=== PATIENT | female | born 1945 | race Caucasian/White ===

== ENCOUNTER 2017-02-16 11:59 | Inpatient (IN) | payer MEDICARE ==
[2017-02-16 13:01] LABS: Hemoglobin 15.7 g/dL (12.0-16.0); Mean Corpuscular HGB CONC 31.8 g/dL (32.0-36.0); Mean Corpuscular Hemoglobin 31.5 pg (27.0-31.0); Mean Corpuscular Volume 98.9 fl (81.0-99.0); Mean Platelet Volume 8.9 fL (7.4-10.4); Platelet Count 386 thou/uL (130-400); RBC Distribution Width 12.1 % (11.5-14.5); Red Blood Cell (RBC) Count 4.99 mill/uL (4.20-5.40); White Blood Cell (WBC) Count 26.9 thou/uL (4.8-10.8)
[2017-02-16] MEDS ORDERED: Azithromycin 500 MG VIAL ONE (13:05)
[2017-02-16 13:08] LABS: ALT (SGPT) 43 U/L (8-55); AST (SGOT) 46 U/L (5-34); Albumin 3.9 g/dL (3.4-4.8); Alkaline Phosphatase 98 U/L (40-150); Anion Gap 22 mmol/L (10-20); BUN (Urea Nitrogen) 27 mg/dL (9.8-20.1); Bilirubin, Total 1.2 mg/dL (0.2-1.2); CK (CPK) 254 U/L (29-168); Calc. Creatinine Clearance 0 mL/min (70-130); Calcium 10.5 mg/dL (7.8-10.44); Carbon Dioxide 28 mmol/L (23-31); Chloride 107 mmol/L (98-107); Estimated GFR-MDRD 60; Globulin 4.4 g/dL (2.4-3.5); Glucose 132 mg/dL (83-110); Lipase 10 U/L (8-78); Magnesium 2.7 mg/dL (1.6-2.6); Potassium 3.4 mmol/L (3.5-5.1); Protein, Total 8.3 g/dL (6.0-8.3); Sodium 154 mmol/L (136-145)
[2017-02-16 13:12] LABS: CKMB 1.4 ng/mL (0-6.6)
--- NOTE | 2017-02-16 13:16 | RAD ---
FRONTAL VIEW CHEST: COMPARISON: None. COMPARISON: 10/28/16. INDICATION: Anorexia. FINDINGS: There is lobar consolidation of the right lung base. Cardiac silhouette is accentuated by portable t echnique. Pulmonary vasculature is within normal limits of size. There is osseous degenerative aleman ge. IMPRESSION: Right basilar pneumonia. Recommend followup to resolution with 2-view chest series. POS: [facility]
[2017-02-16 13:23] LABS: Band 10 % (5-11); Lymphocytes 11 % (21-51); MDiff Complete? YES; Monocytes 2 % (0-10); Neutrophil 75 % (42-75); PLT Morphology Comment Appears Adequate; Reactive Lymphocytes 2 % (0-10)
[2017-02-16 14:34] LABS: Bilirubin Moderate (Negative); Blood, Urine Moderate (Negative); Clarity CLOUDY (Clear); Glucose, Urine (Dipstick) 100 mg/dL (Negative); Leukocyte Negative (Negative); Nitrite Negative (Negative); Protein, Urine (Dipstick) 100 mg/dL (Neg-Trace); Specific Gravity, Urine 1.033 (1.002-1.036)
[2017-02-16 14:38] LABS: Pathc Cast-AUWi Flag 3.65 (0-2.49); Yeast-AUWi Flag 65.5 (0-25.0)
[2017-02-16 14:44] LABS: Bacteria/HPF 1+ HPF (None Seen); Hyaline Casts/LPF 7-10 HYALINE CAST LPF (0-3 Hyaline); Manual Microscopic Reviewed? No Path Casts Seen; Transitional Epithelial 0-3 HPF (0-3); Yeast-All Forms None Seen HPF (None Seen)
[2017-02-16 17:06] LABS: Lactic Acid 2.3 mmol/L (0.5-2.2)
[2017-02-16 17:13] LABS: Troponin I 0.122 ng/mL (< 0.028)
[2017-02-16] MEDS ORDERED: Acetaminophen 325 MG Suppository ONE (18:05)
[2017-02-16 20:27] LABS: Troponin I 0.183 ng/mL (< 0.028)
--- NOTE | 2017-02-16 20:35 | HP ---
DATE OF ADMISSION: 02/16/2017 CHIEF COMPLAINT: Anorexia. HISTORY OF PRESENT ILLNESS: The patient is a 72-year-old female who lives at [facility]. She was found to behave differently in the last 3 days. Apparently, she was taking fo od to her mouth and chewing and not swallowing. She was not taking much fluids either. She had some low grade fever, so she was sent out to the emergency room for further evaluation. There is no any communication with this lady. She has quite advanced dementia. She does not talk for the last almos t 2 years. She had some productive cough. PAST MEDICAL HISTORY: Positive for: 1. Alzheimer dementia. 2. Hypercholesterolemia. PAST SURGICAL HISTORY: None. SOCIAL HISTORY: She lives at [facility]. At this time, she denies any alcohol in take, tobacco use, or drug use. FAMILY HISTORY: Mother had pancreatic cancer and she passed at the age of 94 and father had cancer a nd he passed when he was 78. REVIEW OF SYSTEMS: Reviewed all 14 systems and they were negative except for symptoms mentioned at [facility]. ALLERGIES: BENADRYL. CURRENT MEDICATIONS: Crestor 10 mg at bedtime, Ensure liquid, galantamine 4 mg twice a day, Tylenol 325 mg 2 tablets every 6 hours p.r.n. as needed, Seroquel 100 mg once a day at bedtime. PHYSICAL EXAMINATION: VITAL SIGNS: Her blood pressure is 102/84, pulse is 110 to 130, respiratory rate is 15, temperature is 98.6 rectally, O2 saturation is 97% on room air. HEENT: Atraumatic, normocephalic. Both conjunctivae are erythematous. There is some pus in both ey es. Oral mucosa is dry. NECK: Supple, no lymphadenopathy. LUNGS: Breath sounds somewhat diminished at both bases with few crackles bilaterally at both bases. HEART: S1, S2, tachycardic. No S3, no S4. ABDOMEN: Soft, nontender, bowel sounds are present. No organomegaly. EXTREMITIES: No clubbing, cyanosis, or edema. NEUROLOGIC: She is not following my commands. There is not any communication with this lady. She i s quite severely demented. LABORATORY DATA: Showed sodium of 154, potassium 3.4, chloride 107, CO2 28, BUN 27, creatinine 0.92, glucose 132. Lactic acid 4.1 and then 2.3. Most recently, calcium 10.5, magnesium 2.7, creatinine kinase 254, troponin at 0.122. BNP at 126.1, globulin 4.4, lipase 10. White count of 26.9, hemoglob in of 15.7, hematocrit 49.3, platelet count is 386,000, and neutrophils 75. Urinalysis showed cloudy urine, color ariana, pH of 6, specific gravity of 1.033, urine protein 100, glucose in urine 100, ket ones trace, blood moderate, bilirubin moderate. Microscopic evaluation: 7-10 rbc's, 4-6 wbc's, squa mous epithelial cells 4-6, bacteria 1+, hyaline casts 7-10. none. Chest x-ray showed right ba silar pneumonia. IMPRESSION: 1. Sepsis, most likely secondary to right lower lobe pneumonia. 2. Right lower lobe pneumonia. 3. Severe dehydration. 4. Hypokalemia. 5. Hyperlipidemia. PLAN: Full admission to telemetry floor. Condition is guarded. FULL CODE. Surrogate decision make r is the patient's . IV fluids at 100 mL per hour normal saline. Supplementation of potassiu m. Serial CBCs and BMPs. Continue vancomycin 1 gram every 12 hours IV piggyback and switch her to L evaquin 750 mg IV piggyback every 24 hours. The patient received azithromycin and Rocephin in the [facility] room. We will have cultures done on her urine and blood x2. We will supplement O2 if needed.
[2017-02-16] MEDS ORDERED: Acetaminophen 325 MG TAB PO PRN ×2 (21:03→21:04)
[2017-02-16] MEDS ORDERED: Ondansetron HCl/PF 4 MG/2 ML Vial IVP PRN (21:04)
[2017-02-16] MEDS ORDERED: Sodium Chloride 0.9% 1,000 ML IV SCH (21:04)
[2017-02-16] MEDS ORDERED: Ondansetron ODT 4 MG TAB SL PRN (21:04)
[2017-02-16] MEDS ORDERED: Heparin 5,000 UNITS/ML VIAL SC SCH (21:30)
[2017-02-16] MEDS: Sodium Chloride 0.9% 1,000 ML IV SCH (22:50)
[2017-02-16 23:14] LABS: Troponin I 0.163 ng/mL (< 0.028)
[2017-02-17] MEDS ORDERED: Vancomycin HCl 1 GM in Premix Bag 1 BAG IVPB SCH (04:00)
[2017-02-17 06:53] LABS: Anion Gap 12 mmol/L (10-20); BUN (Urea Nitrogen) 14 mg/dL (9.8-20.1); Calc. Creatinine Clearance 103 mL/min (70-130); Calcium 8.4 mg/dL (7.8-10.44); Carbon Dioxide 25 mmol/L (23-31); Chloride 113 mmol/L (98-107); Estimated GFR-MDRD Greater than 90; Glucose 103 mg/dL (83-110); Potassium 2.7 mmol/L (3.5-5.1); Sodium 147 mmol/L (136-145)
[2017-02-17 07:30] LABS: Band 22 % (5-11); Hemoglobin 11.9 g/dL (12.0-16.0); Lymphocytes 6 % (21-51); MDiff Complete? YES; Mean Corpuscular HGB CONC 31.7 g/dL (32.0-36.0); Mean Corpuscular Hemoglobin 31.3 pg (27.0-31.0); Mean Corpuscular Volume 98.9 fl (81.0-99.0); Monocytes 4 % (0-10); Neutrophil 68 % (42-75); Platelet Count 271 thou/uL (130-400); White Blood Cell (WBC) Count 21.3 thou/uL (4.8-10.8)
[2017-02-17] MEDS: Sodium Chloride 0.9% 1,000 ML IV SCH (08:14)
[2017-02-17] MEDS: Heparin 5,000 UNITS/ML VIAL SC SCH ×3 (08:14→21:33)
[2017-02-17] MEDS: Potassium Chloride 20 MEQ in Sodium Chloride 0.9% 250 ML 250 ML IVPB SCH ×3 (10:24→23:09)
--- NOTE | 2017-02-17 13:59 | PRG ---
DATE OF SERVICE: 02/17/2017 SUBJECTIVE: The patient is seen and examined at bedside. The patient's is in the room ha g my visit. The patient was seen and evaluated by Speech therapist. OBJECTIVE: VITAL SIGNS: Blood pressure is 136/84, pulse is 89, temperature is 96.8, respiratory rate is 20, O2 saturation is 98% on room air. HEENT: Head is atraumatic, normocephalic. Eyes, sclerae are anicteric. Conjunctivae pinkish. Oral mucosa is still somewhat dry. NECK: Supple. No JVDs. LUNGS: Few crackles at the bases. CARDIOVASCULAR: S1, S2 normal, no S3, no S4, no any murmur. ABDOMEN: Soft, nontender, nondistended. EXTREMITIES: No clubbing, cyanosis, or edema. NEUROLOGIC: She does not follow my commands. She does not speak, but she is able to move all 4 extr emities. LABORATORY DATA: Showed a white count of 21.3, hemoglobin 11.9, hematocrit 37.6, platelet count is 2 71. Chemistry showed sodium of 147, potassium 2.7, chloride 113, BUN 13, creatinine 0.58, glucose 10 3, calcium 8.4. Troponin 3 sets with levels 0.122, 0.183 and 0.163. BNP 126.1, potassium 2.7 IMPRESSION: 1. Sepsis, most likely secondary to right lower lobe pneumonia, improved. 2. Right lower lobe pneumonia, question is whether she is aspirating her food. 3. Severe dehydration significantly corrected. 4. Hypernatremia, improved with IV fluids. 5. Hypokalemia, would be replaced with 20 mEq of KCl q.6 hours x3 doses. 6. Hyperlipidemia, stable. PLAN: Change her fluids to half normal saline with 20 mEq of KCl at 75 mL per hour since she is hype rnatremic and she does not need so much sodium, we will supplement her potassium. Her hemoglobin hima pped significantly, but this is delusional. We would continue her antibiotic which is vancomycin, az ithromycin and levofloxacin, this is broad spectrum since she comes from the long term. Blood cul tures were done and there is no growth. Urine culture, no growth. Strep, throat testing is negative and Influenza type direct, the EIA final was normal, which is negative and so plan as mentioned abov e, also since her Troponin I is indeterminant, we will make sure that she is on aspirin and we will o btain echocardiogram for further evaluation of her left ventricle.
[2017-02-17] MEDS ORDERED: Aspirin 300 MG Suppository PR SCH (14:15)
[2017-02-17] MEDS: Clindamycin/D5W 600 MG in Premix Bag 1 BAG IVPB SCH ×2 (14:20→21:32)
[2017-02-17] MEDS: 1/2 NS w/KCL 20 mEq 1,000 ML IV SCH (15:10)
--- NOTE | 2017-02-17 21:16 | CON ---
DATE OF CONSULTATION: 02/17/2017 HISTORY OF PRESENT ILLNESS: The patient is a 72-year-old woman who suffers from severe dementia. The patient presented with increasing dyspnea and decreased appetite. She lives in [facility] [place]. The patient was noted not to be eating and presented to the emergency room. During her hospitalization, the patient was noted to have an abnormal ECG. The patient is unable to give any coherent history. PAST MEDICAL HISTORY: 1. Alzheimer disease. 2. Dyslipidemia. PAST SURGICAL HISTORY: Oral surgery. MEDICATIONS ON ADMISSION: Galantamine 4 mg p.o. b.i.d., Seroquel 100 daily, Crestor 10 daily. FAMILY HISTORY: Positive family history of heart disease. SOCIAL HISTORY: Nonsmoker. ALLERGIES: No known drug allergies. REVIEW OF SYSTEMS: Unobtainable. PHYSICAL EXAMINATION: GENERAL AND VITAL SIGNS: Elderly woman who is disoriented with a blood pressure 137/68. NECK: No jugular venous distention. LUNGS: Coarse breath sounds bilateral. HEART: Regular rate and rhythm. Normal S1, S2. ABDOMEN: Nondistended. EXTREMITIES: Showed trace edema. LABORATORY AND DIAGNOSTIC RESULTS: Sodium 147, potassium 2.7, chloride 113, bicarbonate 25, BUN 14, creatinine 0.58, troponin 0.163. EKG revealed normal sinus tachycardia with a nonspecific ST abnormality. IMPRESSION: 1. Abnormal EKG. 2. Pneumonia. 3. Severe dementia. PLAN: This unfortunate woman had presented with pneumonia and developed probable demand ischemia with indeterminate troponin levels and an EKG suggestive of ischemia. The patient is being treated with aspirin. She is unable to take p.o. medications at this time. I would restart Crestor as soon as possible. We will follow this patient with you throughout her hospitalization. WHIT
[2017-02-17] MEDS: Rosuvastatin 10 MG TAB PO SCH (21:32)
[2017-02-18] MEDS: 1/2 NS w/KCL 20 mEq 1,000 ML IV SCH ×2 (02:50→18:30)
[2017-02-18] MEDS: Clindamycin/D5W 600 MG in Premix Bag 1 BAG IVPB SCH ×4 (04:09→20:44)
[2017-02-18] MEDS: Heparin 5,000 UNITS/ML VIAL SC SCH ×3 (08:48→20:44)
[2017-02-18] MEDS: Aspirin 300 MG Suppository PR SCH (08:49)
[2017-02-18 08:58] LABS: #Eosinphils 0.1 thou/uL (0.0-0.7); #Lymphocytes 1.9 thou/uL (1.20-3.40); #Monocytes 0.8 thou/uL (0.11-0.59); #Neutrophils 11.9 thou/uL (1.40-6.50); %Basophils 0.2 % (0.0-1.0); %Eosinophils 0.5 % (0.0-10.0); %Lymphocytes 12.5 % (21.0-51.0); %Monocytes 5.7 % (0.0-10.0); Mean Corpuscular HGB CONC 32.7 g/dL (32.0-36.0); Mean Corpuscular Hemoglobin 31.6 pg (27.0-31.0); Mean Corpuscular Volume 96.8 fl (81.0-99.0); Mean Platelet Volume 8.7 fL (7.4-10.4); Platelet Count 270 thou/uL (130-400); Red Blood Cell (RBC) Count 4.44 mill/uL (4.20-5.40); White Blood Cell (WBC) Count 14.7 thou/uL (4.8-10.8)
[2017-02-18 09:07] LABS: Anion Gap 15 mmol/L (10-20); BUN (Urea Nitrogen) 8 mg/dL (9.8-20.1); Calc. Creatinine Clearance 116 mL/min (70-130); Calcium 8.9 mg/dL (7.8-10.44); Carbon Dioxide 25 mmol/L (23-31); Chloride 102 mmol/L (98-107); Estimated GFR-MDRD Greater than 90; Glucose 82 mg/dL (83-110); Sodium 139 mmol/L (136-145)
[2017-02-18 09:09] LABS: Potassium 2.8 mmol/L (3.5-5.1)
[2017-02-18] MEDS: Potassium Chloride 20 MEQ TAB PO SCH ×2 (13:00→18:29)
--- NOTE | 2017-02-18 19:00 | PRG ---
DATE OF SERVICE: 02/18/2017 SUBJECTIVE: The patient is seen and examined at the bedside. She is nonverbal. There are two famil y members in the room during my visit. The patient started eating a little bit and generally looked improved. OBJECTIVE: VITAL SIGNS: Blood pressure is 135/61, pulse is 93, temperature is 97.6, maximum temperature is 98.5 , respiratory rate is 16, pulse oximetry is 95% on room air. HEENT: Head is atraumatic, normocephalic. She does not follow my commands. She is not verbal. LUNGS: Have some crackles at both bases. No wheezing, no rales. HEART: S1, S2 normal, no S3, no S4. ABDOMEN: Soft. Bowel sounds are present, no organomegaly. EXTREMITIES: No clubbing, cyanosis or edema. NEUROLOGIC: She is nonverbal. She does not follow commands, but she is able to move all four extrem ities. She is nonfocal on neuro exam. LABORATORY DATA: Showed white count down to 14.7, hemoglobin 14.0, hematocrit 42.9, and platelet cou nt is 270,000. Sodium is 139, potassium 2.8, chloride 102, CO2 25, BUN 8, creatinine 0.52, glucose 8 2, calcium 8.9. Microbiology showed no growth. Urine culture no growth. Blood cultures x2. IMPRESSION: 1. Sepsis, most likely secondary to right lower lobe pneumonia, improving. 2. Right lower lobe pneumonia, most likely some form of aspiration. 3. Severe dehydration, corrected. 4. Hyponatremia, corrected with IV fluids. 5. Hypokalemia, still a problem. We are going to increase her dose to 40 mEq of KCl q.6 hours x3. 6. Hyperlipidemia. 7. Abnormal EKG with ischemic changes and mildly elevated troponins. The patient was seen by Dr. Shaheed bunn, Novel[employer] Twister Tender who recommends to continue her aspirin and follow up with him on outpatient basi s. PLAN: Continue her potassium replacement. Her magnesium was good at 2.7 two days ago, so I do not t hink we require additional level at this point, we just increased the dose of potassium. She will co ntinue her IV antibiotic, which is clindamycin and levofloxacin and she will continue her aspirin. S he is restarted on Crestor by Dr. Thomas. Most likely, she will need additional day or two. Since her white count is significantly improved and clinically, she started eating. We will check her CB C and BMP tomorrow morning.
[2017-02-18] MEDS: Rosuvastatin 10 MG TAB PO SCH (20:44)
[2017-02-19] MEDS: Potassium Chloride 20 MEQ TAB PO SCH (00:32)
[2017-02-19] MEDS: Clindamycin/D5W 600 MG in Premix Bag 1 BAG IVPB SCH ×4 (02:53→20:43)
[2017-02-19] MEDS: 1/2 NS w/KCL 20 mEq 1,000 ML IV SCH ×2 (05:30→13:50)
[2017-02-19] MEDS: Heparin 5,000 UNITS/ML VIAL SC SCH ×3 (09:00→20:43)
[2017-02-19] MEDS: Aspirin 300 MG Suppository PR SCH (09:01)
[2017-02-19 11:11] LABS: #Eosinphils 0.1 thou/uL (0.0-0.7); #Lymphocytes 1.5 thou/uL (1.20-3.40); #Monocytes 0.7 thou/uL (0.11-0.59); #Neutrophils 8.6 thou/uL (1.40-6.50); %Basophils 0.1 % (0.0-1.0); %Eosinophils 0.7 % (0.0-10.0); %Lymphocytes 13.8 % (21.0-51.0); %Monocytes 6.5 % (0.0-10.0); Hemoglobin 13.1 g/dL (12.0-16.0); Mean Corpuscular HGB CONC 32.6 g/dL (32.0-36.0); Mean Corpuscular Hemoglobin 31.4 pg (27.0-31.0); Mean Corpuscular Volume 96.3 fl (81.0-99.0); Mean Platelet Volume 8.3 fL (7.4-10.4); Platelet Count 238 thou/uL (130-400); RBC Distribution Width 11.9 % (11.5-14.5); Red Blood Cell (RBC) Count 4.19 mill/uL (4.20-5.40); White Blood Cell (WBC) Count 10.9 thou/uL (4.8-10.8)
[2017-02-19 11:30] LABS: Anion Gap 11 mmol/L (10-20); BUN (Urea Nitrogen) 9 mg/dL (9.8-20.1); Calc. Creatinine Clearance 102 mL/min (70-130); Calcium 8.6 mg/dL (7.8-10.44); Carbon Dioxide 25 mmol/L (23-31); Chloride 104 mmol/L (98-107); Estimated GFR-MDRD Greater than 90; Glucose 92 mg/dL (83-110); Potassium 4.1 mmol/L (3.5-5.1); Sodium 136 mmol/L (136-145)
--- NOTE | 2017-02-19 14:53 | PDOC.PN ---
- Subjective Encounter Start Date: 02/19/17 Encounter Start Time: 09:00 -: non-verbal Pt seen for followup re: pneumonia. Nonverbal, unable to complete ROS. - Objective Resuscitation Status: Resuscitation Status FULL:Full Resuscitation MAR Reviewed: Yes Vital Signs & Weight: Vital Signs (12 hours) Temp Pulse Resp BP Pulse Ox 02/19/17 12:05 98.2 F 86 14 131/64 92 L 02/19/17 08:50 98.6 F 85 16 121/58 L 90 L 02/19/17 04:00 98.2 F 83 20 121/79 96 Weight Admit Weight 166 lb 4.8 oz Weight 170 lb 9.6 oz I&O: 02/18/17 02/19/17 02/20/17 06:59 06:59 06:59 Intake Total 2943 1237 Balance 2943 1237 Result Diagrams: 02/19/17 10:56 02/19/17 10:56 EKG Reviewed by me: Yes (Tele: NSR) Phys Exam - Physical Examination Constitutional: NAD HEENT: moist MMs Neck: supple R basal crackles Cardiovascular: RRR Gastrointestinal: soft Neurological: moves all 4 limbs Psychiatric: normal affect Skin: no rash Dx/Plan (1) Pneumonia Code(s): J18.9 - PNEUMONIA, UNSPECIFIED ORGANISM Status: Acute (2) Demand ischemia Code(s): I24.8 - OTHER FORMS OF ACUTE ISCHEMIC HEART DISEASE Status: Acute (3) Dementia Code(s): F03.90 - UNSPECIFIED DEMENTIA WITHOUT BEHAVIORAL DISTURBANCE Status: Chronic (4) Dyslipidemia Code(s): E78.5 - HYPERLIPIDEMIA, UNSPECIFIED Status: Chronic - Plan continue antibiotics, PT/OT, out of bed/ambulate * . Leucocytosis improving. Continue IV antibiotics as below. Hypokalemia resolved. Review of Systems - Medications/Allergies Allergies/Adverse Reactions: Allergies Allergy/AdvReac Type Severity Reaction Status Date / Time diphenhydramine Allergy Verified 02/16/17 22:38 [From Benadryl] Medications: Current Medications Acetaminophen (Tylenol) 650 mg PO Q4H PRN PRN Reason: Headache/Fever or Pain Last Admin: 02/18/17 18:29 Dose: 650 mg Aspirin (Aspirin) 300 mg MA DAILY KIKA Last Admin: 02/19/17 09:01 Dose: 300 mg Galantamine Hydrobromide (Razadyne) 4 mg PO BID [facility] Last Admin: 02/19/17 08:59 Dose: 4 mg Heparin Sodium (Porcine) (Heparin) 5,000 units SC TID [facility] Last Admin: 02/19/17 14:47 Dose: 5,000 units Levofloxacin 750 mg/ Device 150 mls @ 100 mls/hr IVPB Q24HR [facility] Last Admin: 02/18/17 21:56 Dose: 150 mls Potassium Chloride/Sodium Chloride (1/2 Ns W/Kcl 20 Meq) 1,000 mls @ 75 mls/hr IV .[id number] [facility] Last Admin: 02/19/17 13:50 Dose: 1,000 mls Clindamycin Phosphate/Dextrose (600 mg/ Device) 50 mls @ 100 mls/hr IVPB 0300, 0900,1500,2100 [facility] Last Admin: 02/19/17 14:45 Dose: 50 mls Metoprolol Succinate (Toprol Xl) 25 mg PO DAILY [facility] Last Admin: 02/19/17 08:59 Dose: 25 mg Quetiapine Fumarate (Seroquel) 100 mg PO DAILY [facility] Last Admin: 02/19/17 08:59 Dose: 100 mg Rosuvastatin Calcium (Crestor) 10 mg PO HS [facility] Last Admin: 02/18/17 20:44 Dose: 10 mg
[2017-02-19] MEDS: Rosuvastatin 10 MG TAB PO SCH (20:42)
[2017-02-20] MEDS: Clindamycin/D5W 600 MG in Premix Bag 1 BAG IVPB SCH ×2 (04:29→08:35)
[2017-02-20] MEDS: 1/2 NS w/KCL 20 mEq 1,000 ML IV SCH ×2 (04:42→08:39)
[2017-02-20] MEDS: Heparin 5,000 UNITS/ML VIAL SC SCH ×3 (08:35→20:49)
[2017-02-20] MEDS: Aspirin 300 MG Suppository PR SCH (08:35)
--- NOTE | 2017-02-20 09:06 | PDOC.PN ---
- Subjective Encounter Start Date: 02/20/17 Encounter Start Time: 09:04 Subjective: nonverbal - Objective Resuscitation Status: Resuscitation Status FULL:Full Resuscitation MAR Reviewed: Yes Vital Signs & Weight: Vital Signs (12 hours) Temp Pulse Resp BP Pulse Ox 02/20/17 04:00 97.4 F L 76 20 116/67 92 L 02/20/17 00:00 18 Weight Admit Weight 166 lb 4.8 oz Weight 171 lb 6.4 oz I&O: 02/19/17 02/20/17 02/21/17 06:59 06:59 06:59 Intake Total 1237 1775 Balance 1237 1775 Result Diagrams: 02/19/17 10:56 02/19/17 10:56 Phys Exam - Physical Examination Neck: no JVD Respiratory: clear to auscultation bilateral Cardiovascular: RRR, no significant murmur Gastrointestinal: soft, positive bowel sounds Musculoskeletal: no edema Dx/Plan (1) Demand ischemia Code(s): I24.8 - OTHER FORMS OF ACUTE ISCHEMIC HEART DISEASE Status: Chronic (2) Pneumonia Code(s): J18.9 - PNEUMONIA, UNSPECIFIED ORGANISM Status: Acute Qualifiers: Pneumonia type: due to Pneumococcus Laterality: right Lung location: middle lobe of lung Qualified Code(s): J13 - Pneumonia due to Streptococcus pneumoniae (3) Dementia Code(s): F03.90 - UNSPECIFIED DEMENTIA WITHOUT BEHAVIORAL DISTURBANCE Status: Chronic Qualifiers: Dementia type: unspecified type Dementia behavioral disturbance: without behavioral disturbance Qualified Code(s): F03.90 - Unspecified dementia without behavioral disturbance (4) Dyslipidemia Code(s): E78.5 - HYPERLIPIDEMIA, UNSPECIFIED Status: Chronic - Plan transition to po antibx, transfer to medical bed -: fever, leukocytosis resolved * .
[2017-02-20 13:21] VITALS: BMI 27.6
--- NOTE | 2017-02-20 13:29 | PQF ---
CLINICAL DOCUMENTATION IMPROVEMENT CLARIFICATION FORM: ICD-10 Updated PLEASE DO AN ADDENDUM TO THE PROGRESS NOTE WITH ANY DOCUMENTATION UPDATES OR ADDITIONS AND CARRY THROUGH TO DC SUMMARY. THANK YOU. DATE: 02/20/17 ATTN: Dr. Finley Please exercise your independent, professional judgment in responding to the clarification form. Clinical indicators are provided on the bottom of this form for your review Please check appropriate box(s) to clarify if the following diagnosis has been ruled in our ruled out: SEPSIS . [ x] Ruled in diagnosis [ x] Continue to treat [ ] Resolved [ ] Ruled out diagnosis [ ] Cannot rule out diagnosis [ ] Other diagnosis [ ] Unable to determine In addition, please specify: Present on Admission (POA): [ x ] Yes [ ] No [ ] Unable to determine For continuity of documentation, please document condition throughout progress notes and discharge summary. Thank You. CLINICAL INDICATORS - SIGNS / SYMPTOMS / LABS H&P: LACTIC ACID 4.1 WHITE COUNT OF 26.9 PN 02/17 - 02/18/17: SEPSIS MOST LIKELY SECONDARY TO R LOWER LOBE PNEUMONIA, IMPROVING. PN 02/20/17: PNEUMONIA DUE TO STREPTOCOCCUS PNEUMONIAE PLAN: FEVER, LEUKOCYTOSIS RESOLVED. RISKS: H&P: LIVES AT [facility]. HX OF ALZHEIMER DEMENTIA. SEPSIS. R LOWER LOBE PNEUMONIA. SEVERE DEHYDRATION. TREATMENT: CPOE 02/16: IV LEVAQUIN Q 24 HR. DC'D 02/20 CPOE 02/20: LEVAUIN 750 MG PO CPOE 02/17: IV CLINDAMYCIN 600MG 0300, 0900, 1500, 2100. DC'D 02/20 Thank you, Jenn (This form is maintained as a part of the permanent medical record) 2015 [employer] All Rights Reserved Jenn Isbell RN, BSN [email or web address] Office: [phone] [facility]
[2017-02-20] MEDS: Rosuvastatin 10 MG TAB PO SCH (20:48)
[2017-02-21] MEDS: Heparin 5,000 UNITS/ML VIAL SC SCH (08:33)
[2017-02-21] MEDS: Aspirin 300 MG Suppository PR SCH (08:35)
[2017-02-21] MEDS: 1/2 NS w/KCL 20 mEq 1,000 ML IV SCH (10:24)
--- NOTE | 2017-02-21 11:11 | DIS ---
DATE OF ADMISSION: 02/16/2017 DATE OF DISCHARGE: 02/21/2017 PRIMARY CARE PROVIDER: Listed as Dr. Herve Montemayor in one site, as Dr. Vasiliy Albert in another . Resident of [facility], she is being discharged back to [facility]. DISCHARGE DIAGNOSES: Pneumonia, demand ischemia, dementia, dyslipidemia, coronary artery disease, se psis syndrome, and lactic acidosis. DISCHARGE MEDICATIONS: Seroquel 100 mg a day, galantamine 4 mg twice a day, acetaminophen 650 q.6 ho urs p.r.n., Crestor 10 mg a day, Levofloxacin 750 mg a day for 10 days, aspirin 81 mg a day. ALLERGIES: Allergic to BENADRYL. CODE STATUS: FULL, pending at the time of discharge. All cultures are negative today. HOSPITAL COURSE: The patient admitted to [facility] Emergency Department to [facility]. She was found to have a sepsis syndrome with a 26.9 white count and lactic acid of 4.1, right l ower lobe pneumonia. She was placed on IV fluids. Cultures obtained, started on antibiotics. Her i nitial white count 26.9 came down to 10.9. Her comp metabolic profile had a mild elevated sodium of 154, potassium 3.4, BUN 27, creatinine 0.9. Troponins were 0.07, 1.22, and 1.83. Her lactic acid dr opped. Her electrolytes became normal. She was seen in consultation by Dr. Jp Thomas. The jair ent improved during her hospital stay and was eventually transitioned to oral antibiotics. She is cu rrently stable. Chest exam is clear. Heart has regular rate and rhythm. Vital signs are stable. No procedures were done. She is being transferred back to [facility] under the ca re of Dr. Herve Montemayor to be followed up in 1 week.
[2017-02-21 14:26] VITALS: BP 130/83; TEMP 98
--- NOTE | 2017-03-11 15:27 | EKG ---
Test Reason : Blood Pressure : / mmHG Vent. Rate : 126 BPM Atrial Rate : 126 BPM P-R Int : 134 ms QRS Dur : 088 ms QT Int : 316 ms P-R-T Axes : 072 019 059 degrees QTc Int : 457 ms Sinus tachycardia Possible Left atrial enlargement Nonspecific ST and T wave abnormality ST depression inferior/lateral Abnormal ECG Confirmed by JOHNATHAN GEORGE, REFUGIO ([id number]), newspaper managing editor ISAI HUNT ([id number]) on 03/11/2017 3:27:27 PM Referred By: Confirmed By:REFUGIO MANN MD
== END 2017-02-21 14:16 | DRG 871 ==
LOC: ERS 11:59 → ERHOLD 13:25 → 2NO 20:41 → T4-B 02-20 10:35
PROVIDERS: ADMIT Internal Medicine; ATTEND Internal Medicine
DX: A41.9 Sepsis, unspecified organism (principal); J13 Pneumonia due to Streptococcus pneumoniae; E87.2 Acidosis; E87.0 Hyperosmolality and hypernatremia; G30.9 Alzheimer's disease, unspecified; I24.8 Other forms of acute ischemic heart disease; F02.80 Dementia in other diseases classified elsewhere, unspecified severity, without behavioral disturbance, psychotic disturbance, mood disturbance, and anxiety; E86.0 Dehydration; E78.5 Hyperlipidemia, unspecified; I25.10 Atherosclerotic heart disease of native coronary artery without angina pectoris; E87.6 Hypokalemia
CPT/HCPCS: 36415; 51701; 71045; 80048; 80053; 81003; 81015; 82553; 83605; 83690; 83735; 83880; 84484; 85025; 87040; 87081; 87086; 87430; 87804; 93005; 93306; 94760; 96361; 96365; 96366; 96367; 96375; A4353; G8996-GN-CK; G8997-GN-CK; J0456; J0696; J1644; J1956; J3370; J3480; J3490; J7050